=== PATIENT | male | born 1940 | race Caucasian/White ===

== ENCOUNTER 2019-07-30 15:37 | Inpatient (IN) | payer OTHER ==
[~2019-07-30] VITALS: Ht 172.7 cm; Wt 78.9 kg
[2019-07-30 15:52] VITALS: BP_SYST 99
--- NOTE | 2019-07-30 15:57 | NUR ---
Patient to ER bed H1 to gown for evaluation. Side rails up.
--- NOTE | 2019-07-30 16:00 | NUR ---
Note kristinswati in EDM - 07/30/19 at 1732 by [email or web address] Pt brought by partner, [email or web address],ambulatory , pt presents to ER with SOB x 2 days , pt is anxious , denies pain, skin pink and warm , cap refill <3, VSS, respirations even and unlabored.
--- NOTE | 2019-07-30 16:05 | NUR ---
ER Dr. Peterson at bedside examining patient.
[2019-07-30] MEDS ORDERED: NACL 0.9% 2,000 ML IV ONE (16:08)
--- NOTE | 2019-07-30 16:10 | NUR ---
Placed in room 5 . Placed on company dancer, blood pressure machine and pulse oximeter. To gown for exam. Side rails up. Report given to Betsey FONTANEZ.
--- NOTE | 2019-07-30 16:15 | NUR ---
Patient presented with C/O Hypotension, hives. Patient A&Ox4, arrived to ER with via wheelchair, patient usually ambulatory at home. Patient states he has hives, denies pain, denies N/V/D. Per , patient was Tx today at [facility] ER for UTI, sent home with ABX Macrobid. states PO Macrobid caused hive, allergic reaction.
[2019-07-30 16:38] LABS: BASOPHILS % (AUTO) 0.1 % (0.0-2.0); HEMATOCRIT 42.6 % (36-54); HEMOGLOBIN 14.3 g/dL (14.0-18.0); LYMPHOCYTES # (AUTO) 0.6 K/uL (1.0-5.5); LYMPHOCYTES % (AUTO) 5.1 % (20.5-51.5); MEAN CORPUSCULAR HEMOGLOBIN 32 pg (27-31); MEAN CORPUSCULAR HGB CONC 34 % (32-36); MEAN CORPUSCULAR VOLUME 97 fL (79.0-98.0); MONOCYTES # (AUTO) 0.2 K/uL (0.0-1.0); MONOCYTES % (AUTO) 1.7 % (1.7-9.3); NEUTROPHILS # (AUTO) 11.7 K/uL (1.8-7.7); NEUTROPHILS % (AUTO) 93.1 % (40.0-70.0); PLATELET COUNT (AUTO) 132 K/uL (130-430); WHITE BLOOD COUNT (AUTO) 12.6 K/uL (4.8-10.8)
[2019-07-30 16:56] LABS: INR 1.5 (0.80-1.20)
[2019-07-30 16:58] LABS: ANION GAP 7 (5-15); CALCIUM 10.1 mg/dL (8.4-11.0); CHLORIDE 104 mmol/L (98-107); GLUCOSE 114 mg/dL (70-99); POTASSIUM 4.4 mmol/L (3.5-5.1); SODIUM SERUM 132 mmol/L (136-145)
[2019-07-30 16:59] LABS: CREATININE 1.31 mg/dL (0.55-1.30); UREA NITROGEN, BLOOD 32 mg/dL (8-21)
[2019-07-30 17:01] LABS: ALANINE AMINOTRANSFERASE 11 U/L (12-78); ALBUMIN 3.7 g/dL (3.4-4.8); ASPARTATE AMINOTRANSFERASE 12 U/L (10-37)
[2019-07-30 17:14] LABS: BILIRUBIN,URINE 1+ (NEGATIVE); BLOOD, URINE NEGATIVE (NEGATIVE); CLARITY/URINE HAZY (CLEAR); COLOR,URINE ORANGE (YELLOW); GLUCOSE,URINE NEGATIVE (NEGATIVE); KETONES,URINE TRACE (NEGATIVE); LEUKOCYTE ESTERASE ,URINE 1+ (NEGATIVE); NITRITE, URINE NEGATIVE (NEGATIVE); PH,URINE 5.5 (5.0-8.0); PROTEIN URINE 1+ (NEGATIVE)
[2019-07-30 17:24] LABS: BACTERIA,URINE FEW /HPF (None Seen); RBC,URINE 0-3 /HPF (0-3); WBC,URINE 20-50 /HPF (0-3)
[2019-07-30 17:25] LABS: MUCUS,URINE 2+ /LPF (None Seen)
[2019-07-30] MEDS ORDERED: PRED20TA PO (17:49)
[2019-07-30] MEDS ORDERED: LITH300C2 PO (17:49)
--- NOTE | 2019-07-30 17:49 | NUR ---
Medications reconciled based upon bottles of medcation provided by patient.
[2019-07-30] MEDS ORDERED: cefTRIAXone 1 GM in D5W 50 ML IV ONE (18:00)
[2019-07-30] MEDS ORDERED: GENTAMICIN 120 mg/100 mL NS 100 ML IV ONE (18:15)
--- NOTE | 2019-07-30 18:25 | NUR ---
Patient will be admitted to care of Brayden. Admitted to Med surg unit. Will go to room 134 A. Belongings list completed. Summary report printed. Report to Thais via Telephone .
--- NOTE | 2019-07-30 18:25 | NUR ---
ADMISSION NOTE Received patient from ER via gurney. Patient admitted with diagnosis of SEPSIS. Patient is awake, alert, oriented X4. Patient oriented to hospital room, call light, toileting, pain management and safety-teach back done. Patient informed that their room number is 134 A. Personal belongings checked and Belongings List documented. Call light within reach. Patient in stable condition.
[2019-07-30] MEDS ORDERED: cefTRIAXone 1 GM VIAL ONE (18:30)
--- NOTE | 2019-07-30 18:43 | NUR ---
INITIAL NOTE: RECEIVED PATIENT FROM ER. PATIENT IS ALERT AND ORIENTED x4. PATIENT WAS ABLE TO SCOOT OFF THE GURNEY TO GET INTO THE BED. NO SIGNS OF DISTRESS OR SHORTNESS OF BREATH NOTED. PATIENT DENIES ANY PAIN AT THE MOMENT. IV SITE IS PATENT WITH FLUIDS RUNNING FROM ER. PATIENT TOLERATING OXYGEN ON ROOM AIR. PATIENT IN STABLE CONDITION. SAFETY, FALL AND ASPIRATION PRECAUTIONS ARE IN PLACE. BED LOCKED IN LOWEST POSITION WITH CALL LIGHT IN REACH. WILL ENDORSE PATIENT TO ONCOMING PHYSICIAN PRACTICE ADMINISTRATOR NURSE.
[2019-07-30] MEDS ORDERED: HYDROCORTISONE SOD SUCC 100 MG/2 ML VIAL IVP ONE (18:45)
[2019-07-30 18:48] VITALS: BP_SYST 153
--- NOTE | 2019-07-30 19:05 | NUR ---
OPENING NOTES Bedside report received from dayshift nurse. Patient received lying in bed, awake, alert, no s/s of acute distress noted. Breathing even and unlabored. IVF infusing well, IV site patent, no signs of infiltration or infection noted. HOB raised. Call light with patient, patient demonstrated back proper use. Bed alarm is off per patient's refusal despite being educated on its purpose and benefits. Bed is locked and at lowest position. Will continue to monitor.
[2019-07-30 20:00] VITALS: BP_SYST 138
[2019-07-30] MEDS: PIPERACILLIN/TAZO 3.375/DEX-IS 50 ML IV SCH ×2 (20:08→23:41)
[2019-07-30] MEDS: NACL 0.9% 1,000 ML IV SCH (20:08)
--- NOTE | 2019-07-30 21:00 | NUR ---
ASSISTED TO BATHROOM Patient assisted to the bathroom and back to bed, patient voided. Patient tolerated well, gait steady. All needs met. IVF infusing well. Call light with patient. Will continue to monitor.
--- NOTE | 2019-07-30 21:08 | NUR ---
CONSULTATION PAGED/CALLED Reason for Consultation: UNINARY RETENTION Person Who was Notified: GILL Consulting Physician: CLAUDIO WALKER Director Of Retail Specialty: Ordering Physician: FERNANDO
[2019-07-30] MEDS ORDERED: HYDROCORTISONE SOD SUCC 100 MG/2 ML VIAL IVP SCH (22:00)
[2019-07-30] MEDS: HYDROCORTISONE SOD SUCC 100 MG/2 ML VIAL IVP SCH (22:33)
--- NOTE | 2019-07-30 23:00 | NUR ---
ROUNDS Patient in bed, resting. No signs of discomfort noted. Chest rise and fall even bilaterally. IVF infusing well. No SOB, no complaints of pain or discomfort. All needs met. Call light with patient. Bed alarm on. Will continue to monitor .
[2019-07-31 00:29] LABS: LITHIUM 3.37 mEq/L (0.50-1.0)
--- NOTE | 2019-07-31 00:37 | NUR ---
PAGED PAGED DOCTOR KING FOR CRITICAL LABS
--- NOTE | 2019-07-31 01:00 | NUR ---
ROUNDS Patient in bed, eyes closed, appears to be asleep. No signs of discomfort noted. Chest rise and fall even bilaterally. IVF infusing well. Call light with patient. Will continue to monitor.
--- NOTE | 2019-07-31 01:08 | NUR ---
2nd paged paged alphonsedial 2nd time for critical labs
[2019-07-31 01:32] VITALS: BP_SYST 112
--- NOTE | 2019-07-31 03:00 | NUR ---
SCRATCHED ARM Patient scratched his right forearm causing it to bleed. Area cleansed with soap and water, patted dry and covered with gauze dressing. Patient advised to stop scratching area. Patient verbalized understanding. All needs met at this time. Will continue to monitor.
[2019-07-31] MEDS: NACL 0.9% 1,000 ML IV SCH ×3 (04:15→18:25)
--- NOTE | 2019-07-31 05:00 | NUR ---
ASSISTED TO BATHROOM/NEW IV Patient assisted to bathroom to have BM, then assisted back to bed after. No signs of discomfort noted. Chest rise and fall even bilaterally. All needs met. New IV site initiated at left hand, 20 gauge. Previous IV site got pulled out, catheter fully intact, no active bleeding noted. Call light with patient. IVF infusing well. Will continue to monitor.
[2019-07-31] MEDS: PIPERACILLIN/TAZO 3.375/DEX-IS 50 ML IV SCH ×3 (05:27→18:26)
[2019-07-31] MEDS: HYDROCORTISONE SOD SUCC 100 MG/2 ML VIAL IVP SCH ×3 (05:40→21:51)
[2019-07-31 06:21] LABS: BASOPHILS % (AUTO) 0.1 % (0.0-2.0); HEMATOCRIT 38.7 % (36-54); HEMOGLOBIN 13.1 g/dL (14.0-18.0); LYMPHOCYTES # (AUTO) 0.7 K/uL (1.0-5.5); LYMPHOCYTES % (AUTO) 5.1 % (20.5-51.5); MEAN CORPUSCULAR HEMOGLOBIN 33 pg (27-31); MEAN CORPUSCULAR HGB CONC 34 % (32-36); MEAN CORPUSCULAR VOLUME 97 fL (79.0-98.0); MONOCYTES # (AUTO) 0.6 K/uL (0.0-1.0); NEUTROPHILS # (AUTO) 12.4 K/uL (1.8-7.7); NEUTROPHILS % (AUTO) 90.8 % (40.0-70.0); PLATELET COUNT (AUTO) 135 K/uL (130-430); RED BLOOD CELL COUNT(AUTO) 4.01 MIL/uL (4.2-6.2); RED CELL DISTRIBUTION WIDTH 14.1 % (9.0-15.0); WHITE BLOOD COUNT (AUTO) 13.7 K/uL (4.8-10.8)
[2019-07-31 06:24] LABS: ALANINE AMINOTRANSFERASE 10 U/L (12-78); ALBUMIN 3.1 g/dL (3.4-4.8); ANION GAP 7 (5-15); ASPARTATE AMINOTRANSFERASE 19 U/L (10-37); CALCIUM 9.4 mg/dL (8.4-11.0); CHLORIDE 108 mmol/L (98-107); CREATININE 1.11 mg/dL (0.55-1.30); GLUCOSE 119 mg/dL (70-99); POTASSIUM 3.7 mmol/L (3.5-5.1); SODIUM SERUM 135 mmol/L (136-145); TOTAL BILIRUBIN 0.8 mg/dL (0.0-1.0); UREA NITROGEN, BLOOD 25 mg/dL (8-21)
--- NOTE | 2019-07-31 06:30 | NUR ---
CLOSING NOTES Patient in bed at this time, eyes closed, appears to be asleep. No s/s of acute distress noted. Breathing even and unlabored. IVF infusing well, IV site patent, no signs of infiltration or infection noted. All needs met throughout shift. Fall and safety precautions maintained throughout shift. Will continue to monitor until patient care is endorsed to oncoming dayshift nurse.
--- NOTE | 2019-07-31 07:35 | NUR ---
Opening note Patient sitting up in bed at this time, A/Ox3, no SOB. No complaints of pain. IV patent, intact, and infusing fluids as ordered. No adverse side effects noted. On safety and aspiration precautions, HOB kept elevated, bed alarm on, bed in lowest position, 3 side rails up. Call light within reach. Patient in stable condition. Will continue to monitor.
[2019-07-31 08:30] VITALS: BP_SYST 141
[2019-07-31] MEDS ORDERED: PREDNISONE 20 MG TABLET PO SCH (09:00)
--- NOTE | 2019-07-31 09:00 | NUR ---
Ambulating Patient ambulated to the restroom and back to bed with steady gait. No complaints of pain. Patient in stable condition.
--- NOTE | 2019-07-31 11:30 | NUR ---
Rounds Offered to assist patient to the restroom, patient declined need. refilled water pitcher. No other needs. Patient in stable condition.
--- NOTE | 2019-07-31 12:44 | NUR ---
Lunch Patient sitting up in bed at this time, eating lunch. Tolerating well. No nausea, no vomiting. No complaints of pain.
[2019-07-31 13:02] VITALS: BP_SYST 154
--- NOTE | 2019-07-31 14:17 | NUR ---
Rounds patient resting in bed at this time, no complaints of pain. No SOB. IV patent, intact, and infusing fluids as ordered. no adverse side effects noted.
[2019-07-31] MEDS: DIPHENHYDRAMINE HCL 50 MG CAPSULE PO PRN (14:30)
--- NOTE | 2019-07-31 16:35 | NUR ---
Dietitian Recommendations * Recommend continuing regular diet LP, RD Please refer to Nutrition Assessment for details. Addendum: 07/31/19 at [address] Amended: Links added.
[2019-07-31 16:37] VITALS: BP_SYST 130
--- NOTE | 2019-07-31 18:30 | NUR ---
Closing note Patient resting in bed at this time, , no complaints of pain at this time. NO SOB. IV patent, intact, and infusing fluids as ordered. No adverse side effects. On safety and aspiration precautions, HOB kept elevated, bed alarm on, bed in lowest position, 3 side rails up. call light within reach. All needs met.
--- NOTE | 2019-07-31 18:55 | NUR ---
Lizett Jensen s/w Kike
--- NOTE | 2019-07-31 19:00 | NUR ---
Dr. Jensen called back Patient complained of itchiness, MD made aware, new order noted.
[2019-07-31 19:18] VITALS: BP_SYST 146
--- NOTE | 2019-07-31 19:25 | NUR ---
initial notes: pt is in bed, alert, awake,oriented x 3. no pain, no distress. no sob. stable vital sign. scratching his body due to rashes all over. no pone wound. pt has ivf infusing to left hand- leaking. will start new iv site later. explained to pt plan of care. pt agree and demonstrate understanding.needs attended. call light in reach. low bed positoin and lock. bed alarm on. will follow-up.
--- NOTE | 2019-07-31 20:30 | NUR ---
at bedside, update admission data from yesterday.
--- NOTE | 2019-07-31 21:17 | NUR ---
family member call to stated the pt is taking nitrofurantoin monohydrate when the rashes came out.
--- NOTE | 2019-07-31 21:40 | NUR ---
start new iv site to left forearm gauge 20- good blood return, done aseptically.pt tolerate well.
--- NOTE | 2019-07-31 22:00 | NUR ---
awake, alert. watching tv. no pain. no acute distress. stable.
[2019-07-31] MEDS: DIPHENHYDRAMINE HCL/ZINC ACET 28.3 GM CREAM.GM. TP PRN (22:08)
[2019-08-01 00:48] VITALS: BP_SYST 129
--- NOTE | 2019-08-01 01:16 | NUR ---
pt go to bathroom assisted by CN. back to bed assisted by regional flatbed truck driver and pt is clean at bedside. complain of itchiness. stable. needs attended. call light in reach. bed alarm on.
[2019-08-01] MEDS: DIPHENHYDRAMINE HCL 50 MG CAPSULE PO PRN ×3 (01:21→17:39)
[2019-08-01] MEDS: PIPERACILLIN/TAZO 3.375/DEX-IS 50 ML IV SCH ×3 (01:21→11:17)
--- NOTE | 2019-08-01 03:01 | NUR ---
pt void on his pitcher. and spill on the floor. explained to pt to call for assistance. needs attended. bed alarm on. call light in reach. will follow-up.
--- NOTE | 2019-08-01 04:15 | NUR ---
awake, alert. no pain. stable. ivf infusing well. needs attended, call light in reach.
[2019-08-01] MEDS: HYDROCORTISONE SOD SUCC 100 MG/2 ML VIAL IVP SCH ×3 (05:43→22:04)
[2019-08-01] MEDS: DIPHENHYDRAMINE HCL/ZINC ACET 28.3 GM CREAM.GM. TP PRN ×3 (05:45→22:05)
--- NOTE | 2019-08-01 06:00 | NUR ---
resting on his side. stable. no sob. no pain. bed alarm on.
--- NOTE | 2019-08-01 07:11 | NUR ---
CLOSING: pt is laying in bed. no distress. no pain. awake,alert.no sob. ivf infusing well. needs attended the whole shift. bedside report given to am rn.
[2019-08-01 08:15] VITALS: BP_SYST 125
--- NOTE | 2019-08-01 09:00 | NUR ---
Ambulating Patient ambulated to the restroom and back to bed with assistance. No complaints of pain. Patient in stable condition.
[2019-08-01] MEDS ORDERED: MORPHINE 2 MG/ML INJ. SYRINGE IVP ONE (10:00)
--- NOTE | 2019-08-01 10:52 | NUR ---
CONSULTATION PAGED/CALLED Reason for Consultation: SEPSIS Person Who was Notified: SPOKE TO JIGNA FROM OFFICE. Consulting Physician: Strategic Planning Manager Specialty: INFECTIOUS DISEASE Ordering Physician:
[2019-08-01] MEDS: NACL 0.9% 1,000 ML IV SCH (11:16)
[2019-08-01] MEDS ORDERED: GENTAMICIN 80 mg/100 mL NS 100 ML IV ONE (11:30)
--- NOTE | 2019-08-01 11:33 | NUR ---
DC planning--urine culture results pending--f/u for dc planning tomorrow-- HUSEYIN
[2019-08-01 12:00] VITALS: BP_SYST 128
--- NOTE | 2019-08-01 12:30 | NUR ---
Dr. Sharp rounds New order to DC zosyn, and start gentamicin noted.
--- NOTE | 2019-08-01 14:30 | NUR ---
bathroom rounds Patient noted with incontinence of urine, linens changed. reminded patient to use the urinal. patient stated " I cant use it". Skin care provided.
[2019-08-01 16:00] VITALS: BP_SYST 142
--- NOTE | 2019-08-01 16:06 | NUR ---
DC planning: S/W pt at bedside re: possible SNF placement-Raina from [place] (ph [phone])called asking if pt willing to go to SNF-I asked pt if he's willing to go to shelter and pt said "I would rather than go there" and then asked me what [facility] is. I explained what it is and pt would not give me answer if he's willing to go if MD recommends it. Raina from [place] will f/u with case mgt tomorrow
--- NOTE | 2019-08-01 16:30 | NUR ---
Linens changed patient noted with incontinence of urine. Linens changed skin care provided. Assisted patient to the bathroom, weakness noted with shuffling gait. Assisted patient back to bed. Call light within reach. patient in stable condition.
--- NOTE | 2019-08-01 18:55 | NUR ---
Closing note Patient resting in bed at this time, No SOB, no complaints of pain at this time. Family at bedside. IV patent, intact, and infusing fluids as ordered. No adverse side effects. On safety and aspiration precautions, HOB kept elevated, bed alarm on, bed in lowest position, 3 side rails up. call light within reach. All needs met.
[2019-08-01 20:00] VITALS: BP_SYST 135
--- NOTE | 2019-08-01 20:00 | NUR ---
Pt received sitting on edge of his bed fully awake and alert. IVF in LFA discontinued per MD's order. Saline intact without any signs of infiltration. Pt instructed to call for assistance before ambulating and as needed and pt verbalized understanding. Call light is with pt and bed is in the lowest and locked positions.
--- NOTE | 2019-08-01 22:05 | NUR ---
Benadryl cream applied to pt's back, chest, abdomen and both groins for c/o itching.
[2019-08-02] VITALS: BP_SYST 126
--- NOTE | 2019-08-02 | NUR ---
Pt is sleeping in bed without any respiratory distress noted. Saline lock is intact in LFA. Fall and safety precautions are in place.
--- NOTE | 2019-08-02 01:30 | NUR ---
Pt was found lying on his bed naked and his bed linen wet with urine. Pt was assisted with hygiene and complete bed linen and gown change done by charge nurse Oryl.
[2019-08-02] MEDS: DIPHENHYDRAMINE HCL 50 MG CAPSULE PO PRN ×4 (01:49→21:11)
--- NOTE | 2019-08-02 01:49 | NUR ---
Pt c/o itching and Benadryl 50mg was given po. Call light is with pt and bed alarm is on.
--- NOTE | 2019-08-02 02:15 | NUR ---
Pt was assisted with eating 2 cups of pudding and drinking a cup of Decaf coffee per his request. Pt's hands were very shaky.
--- NOTE | 2019-08-02 02:35 | NUR ---
Pt was incontinent of urine in bed. Cheri care and partial linen change done. Call light is with pt and bed alarm is on.
[2019-08-02] MEDS: DIPHENHYDRAMINE HCL/ZINC ACET 28.3 GM CREAM.GM. TP PRN ×3 (06:05→18:18)
--- NOTE | 2019-08-02 06:05 | NUR ---
Pt is awake and no acute distress noted at this time. Benadryl cream applied to pt's back, chest, abdomen and both thighs for c/o itching. Fall and safety precautions are in place. Will endorse to day shift nurse.
[2019-08-02] MEDS: HYDROCORTISONE SOD SUCC 100 MG/2 ML VIAL IVP SCH (06:06)
[2019-08-02 07:54] VITALS: BP_SYST 155
--- NOTE | 2019-08-02 08:00 | NUR ---
Note Pt sitting on side of bed with gown off and linens on the floor. Pt was given clean gown and assisted in sitting up in bed. Pt's breakfast tray across him to eat. No SOB/resp distress or pain/discomfort noted at this time. IV in left forearm intact and patent at this time. No needs noted at this time. Pt was given his Benadryl PO tablet at this time as well for itching. Call light within reach.
--- NOTE | 2019-08-02 11:00 | NUR ---
Note Pt restless in bed and insists on not using the urinal and urinates in bed or on the floor. Pt has been frequently reminded to use urinal or call for assistance to restroom. Pt does not follow instructions. Pt now resting in bed after hygiene care and linen change done. Call light within reach. Bed alarm on all shift.
--- NOTE | 2019-08-02 11:42 | NUR ---
Discharge Planning: DCP faxed pt referral to [facility] (f [phone]) DCP to follow up.
--- NOTE | 2019-08-02 11:45 | NUR ---
Note Dr Sharp on the floor assessing pt and writing orders at this time. No needs noted with pt at this time. Call light within reach.
[2019-08-02] MEDS ORDERED: GENTAMICIN 80 MG/ ISO-OSM 100 ML PREMIX IV SCH (12:00)
[2019-08-02 12:45] VITALS: BP_SYST 121
--- NOTE | 2019-08-02 14:25 | NUR ---
Note Pt sitting on side of bed drinking his cup of coffee. Pt sitting on side of bed with gown off again and bed linens on the floor. Pt instructed again not to strip gown off and urinate in bed and on the floor. Pt was given a fresh gown once again and bed made up with fresh bed linens. Call light within reach.
--- NOTE | 2019-08-02 15:00 | NUR ---
DC PLANNING: SNF CLINICAL PACKET AND ORDER HAS BEEN SENT TO [facility] CM (NAIF) @ [facility] . CM ATTEMPTED TO CONTACT PATIENT'S (TATIANA BARR) @ TO DISCUSS DC PLANNING TO SNF. HOWEVER, WAS UNAVAILABLE. CM LEFT A VOICE MESSAGE. CM NOTIFIED INSURANCE CM (NAIF). PER NAIF, SHE IS ATTEMPTING TO CONTACT PATIENT'S WELL. CM TO FOLLOW UP NEEDED.
[2019-08-02 16:31] VITALS: BP_SYST 124
--- NOTE | 2019-08-02 16:53 | NUR ---
DC PLANNING: RECEIVED A CALL FROM PATIENT'S (TATIANA BARR) @ , DISCUSSED DC PLANNING TO SNF. PATIENT'S AGREEABLE FOR DC TO CONTRACTED SNF WITH INSURANCE. ALTERNATIVE DIESEL LOCOMOTIVE FIRER/FIREMAN IS PATIENT'S DAUGHTER (CRYSTAL ROMO) C .
--- NOTE | 2019-08-02 18:25 | NUR ---
Note Pt was given Benadryl ointment at this time. Pt refused any of his dinner tray. Pt was checked on q1' and PRN all shift. Pt was moved to room 121A from room 134A around 1400. No SOB/resp distress or pain/discomfort noted at this time. Pt's IV in left forearm intact and patent at this time. No needs noted at this time. Pt was maintained with safety precautions all shift. Call light within reach.
--- NOTE | 2019-08-02 18:52 | NUR ---
ester watch case polisher Joana the watch case polisher called and said pt will be transferred around 2100 going to [facility] . going to room 400b for report to call [phone]
[2019-08-02 20:05] VITALS: BP_SYST 135
--- NOTE | 2019-08-02 20:48 | NUR ---
REPORT GIVEN REPORT GIVEN TO HUSEYIN THOMAS FROM [place]. [facility]. PT TO GO TO ROOM 400-B UNDER ADMITTING DR. SANABRIA. PT TO CONTINUE IV GENTAMYCIN FOR 5 DAYS. TATIANA AWARE AND AGREEABLE OF THE TRANSFER.
--- NOTE | 2019-08-02 21:52 | NUR ---
DISCHARGE [facility] HERE TO [facility] LOT UTILITY WORKER PT. PT AAOX2, VSS. IV SALINE LOCK L. FA 20G CLEAR AND PATENT. ID BAND REMOVED. ALL BELONGINGS WITH PT.
== END 2019-08-02 22:00 | DRG 871 ==
LOC: SED 15:37 → SMU 18:04
PROVIDERS: ADMIT Internal Medicine Hospice and Palliative Medicine; ATTEND Internal Medicine Hospice and Palliative Medicine
DX: A41.9 Sepsis, unspecified organism (principal); N17.0 Acute kidney failure with tubular necrosis; N39.0 Urinary tract infection, site not specified; F31.9 Bipolar disorder, unspecified; F03.90 Unspecified dementia, unspecified severity, without behavioral disturbance, psychotic disturbance, mood disturbance, and anxiety; N40.0 Benign prostatic hyperplasia without lower urinary tract symptoms; E86.0 Dehydration; I10 Essential (primary) hypertension; E78.5 Hyperlipidemia, unspecified; K74.60 Unspecified cirrhosis of liver; T38.0X5A Adverse effect of glucocorticoids and synthetic analogues, initial encounter; L51.9 Erythema multiforme, unspecified; Z87.11 Personal history of peptic ulcer disease; Z79.899 Other long term (current) drug therapy; Z88.8 Allergy status to other drugs, medicaments and biological substances; Y92.89 Other specified places as the place of occurrence of the external cause
CPT/HCPCS: 36415; 71045; 80053; 80178-TC; 81000-TC; 82565-TC; 83605; 84484; 85025; 85610-TC; 85730-TC; 87040-TC; 87086; 93005; 96361; 96365; 99285; J0696; J1580; J1720; J2543; J7030; J7060; Q0163